=== PATIENT | female | born 2000 | race Asian ===

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

== ENCOUNTER 2022-08-21 18:33 | Emergency (ER) | payer OTHER ==
[~2022-08-21] VITALS: Ht 162.6 cm; Wt 60.9 kg
[2022-08-21] MEDS ORDERED: ARIP400S3 IM (19:11)
[2022-08-21 20:12] LABS: BASOPHILS % (AUTO) 0.8 % (0.0-2.0); EOSINOPHILS % (AUTO) 0.4 % (1.0-6.0); HEMATOCRIT 39.7 % (36-46); HEMOGLOBIN 13.4 g/dL (12.0-16.0); LYMPHOCYTES # (AUTO) 1.8 K/uL (1.0-4.8); LYMPHOCYTES % (AUTO) 17.2 % (22.0-44.0); MEAN CORPUSCULAR HGB CONC 33.8 G/dL (31.0-37.0); MEAN CORPUSCULAR VOLUME 95 fL (80-100); MONOCYTES # (AUTO) 0.7 K/uL (0.1-1.0); MONOCYTES % (AUTO) 6.4 % (2.0-9.0); NEUTROPHILS % (AUTO) 75.2 % (40.0-70.0); PLATELET COUNT (AUTO) 360 K/uL (150-450)
[2022-08-21 20:21] LABS: ANION GAP 6 mmol/L (8-16); CALCIUM, TOTAL 9.8 mg/dL (8.8-10.5); CARBON DIOXIDE 29 mmol/L (22-29); CHLORIDE 101 mmol/L (98-107); CREATININE 0.84 mg/dL (0.60-1.30); GLOMERULAR FILTR. RATE CALC > 60 mL/min (>60); GLUCOSE,RANDOM 102 mg/dL (70-110); POTASSIUM 4.1 mmol/L (3.5-5.1); SODIUM SERUM 136 mmol/L (136-145); UREA NITROGEN, BLOOD 10 mg/dL (7-18)
[2022-08-21 20:33] LABS: ALANINE AMINOTRANSFERASE 12 U/L (12-78); ALBUMIN 3.7 g/dL (3.4-5.0); ALKALINE PHOSPHATASE 79 U/L (46-116); ASPARTATE AMINOTRANSFERASE 12 U/L (15-37); BILIRUBIN,TOTAL 0.3 mg/dL (0.1-1.0); HCG,QUANTITATIVE < 1 mIU/mL (0-6); TOTAL PROTEIN, SERUM 7.4 g/dL (6.4-8.2)
[2022-08-21 21:35] LABS: COVID AG,FIA SOURCE NASAL SWAB
[2022-08-21 21:48] LABS: AMPHET/METH SCREEN,URINE NEGATIVE (NEGATIVE); BARBITURATE SCREEN, URINE NEGATIVE (NEGATIVE); BENZODIAZEPINES SCREEN,URINE NEGATIVE (NEGATIVE); CANNABINOID SCREEN,URINE NEGATIVE (NEGATIVE); COCAINE SCREEN,URINE NEGATIVE (NEGATIVE); METHADONE SCREEN, URINE NEGATIVE (NEGATIVE); OPIATE SCREEN,URINE NEGATIVE (NEGATIVE)
[2022-08-21 21:49] LABS: PHENCYCLIDINE SCREEN,URINE NEGATIVE (NEGATIVE)
[2022-08-21 22:34] VITALS: BP 124/5
== END 2022-08-21 23:00 | disposition home or self-care (01) ==
LOC: EDUNIT# 18:33 → EDBD 18:43 → EMS 18:43
DX: F20.0 Paranoid schizophrenia (principal); Z20.822 Contact with and (suspected) exposure to COVID-19
CPT/HCPCS: 99283; 87426; 80053; 84702; 85025; 36415; 80307; G0480

== ENCOUNTER 2022-10-12 17:24 | Inpatient (IN) | payer MEDICAID, OTHER ==
[~2022-10-12] VITALS: Ht 162.6 cm; Wt 54.0 kg
[~2022-10-12 17:24] MED LIST: ARIP400S3 IM
[2022-10-12] MEDS ORDERED: ACTIVATED CHARCOAL 50 GM/240 ML SUSPENSION PO ONE ×2 (18:15→20:30)
[2022-10-12] MEDS ORDERED: SODIUM CHLORIDE 0.9% 1,000 ML IV ONE ×2 (18:15→19:15)
[2022-10-12 18:20] LABS: BASOPHILS % (AUTO) 0.5 % (0.0-2.0); EOSINOPHILS % (AUTO) 0.5 % (1.0-6.0); HEMATOCRIT 42.5 % (36-46); HEMOGLOBIN 13.9 g/dL (12.0-16.0); LYMPHOCYTES # (AUTO) 2.2 K/uL (1.0-4.8); LYMPHOCYTES % (AUTO) 20.7 % (22.0-44.0); MEAN CORPUSCULAR HEMOGLOBIN 30.9 pg (26.0-34.0); MEAN CORPUSCULAR HGB CONC 32.7 G/dL (31.0-37.0); MEAN CORPUSCULAR VOLUME 95 fL (80-100); MONOCYTES # (AUTO) 0.6 K/uL (0.1-1.0); MONOCYTES % (AUTO) 5.7 % (2.0-9.0); NEUTROPHILS # (AUTO) 7.6 K/uL (1.8-7.7); NEUTROPHILS % (AUTO) 72.6 % (40.0-70.0); PLATELET COUNT (AUTO) 342 K/uL (150-450); RED BLOOD CELL COUNT(AUTO) 4.49 MIL/uL (4.00-5.20); RED CELL DISTRIBUTION WIDTH 12.4 % (11.5-14.5)
[2022-10-12 18:28] LABS: ANION GAP 13 mmol/L (8-16); CALCIUM, TOTAL 9.2 mg/dL (8.8-10.5); CARBON DIOXIDE 25 mmol/L (22-29); CHLORIDE 99 mmol/L (98-107); CREATININE 1.03 mg/dL (0.60-1.30); GLUCOSE,RANDOM 169 mg/dL (70-110); POTASSIUM 3.9 mmol/L (3.5-5.1); SODIUM SERUM 137 mmol/L (136-145); UREA NITROGEN, BLOOD 9 mg/dL (7-18)
[2022-10-12 18:31] LABS: GLOMERULAR FILTR. RATE CALC > 60 mL/min (>60)
[2022-10-12 18:32] LABS: AMPHET/METH SCREEN,URINE NEGATIVE (NEGATIVE); BARBITURATE SCREEN, URINE NEGATIVE (NEGATIVE); BENZODIAZEPINES SCREEN,URINE NEGATIVE (NEGATIVE); CANNABINOID SCREEN,URINE NEGATIVE (NEGATIVE); COCAINE SCREEN,URINE NEGATIVE (NEGATIVE); METHADONE SCREEN, URINE NEGATIVE (NEGATIVE); OPIATE SCREEN,URINE NEGATIVE (NEGATIVE); PHENCYCLIDINE SCREEN,URINE NEGATIVE (NEGATIVE)
[2022-10-12 18:44] LABS: ACETAMINOPHEN < 2 mcg/mL (10-30); ALANINE AMINOTRANSFERASE 10 U/L (12-78); ALBUMIN 3.8 g/dL (3.4-5.0); ALKALINE PHOSPHATASE 88 U/L (46-116); ASPARTATE AMINOTRANSFERASE 15 U/L (15-37); BILIRUBIN,TOTAL 0.4 mg/dL (0.1-1.0); TOTAL PROTEIN, SERUM 8.4 g/dL (6.4-8.2)
[2022-10-12 18:53] LABS: SALICYLATE 26.1 mg/dL (2.8-20.0)
[2022-10-12 20:20] LABS: ANION GAP 10 mmol/L (8-16); CALCIUM, TOTAL 8.6 mg/dL (8.8-10.5); CARBON DIOXIDE 24 mmol/L (22-29); CHLORIDE 105 mmol/L (98-107); CREATININE 1.01 mg/dL (0.60-1.30); GLUCOSE,RANDOM 185 mg/dL (70-110); POTASSIUM 4.2 mmol/L (3.5-5.1); SODIUM SERUM 139 mmol/L (136-145); UREA NITROGEN, BLOOD 8 mg/dL (7-18)
[2022-10-12 20:23] LABS: GLOMERULAR FILTR. RATE CALC > 60 mL/min (>60)
[2022-10-12 20:25] LABS: SALICYLATE 23.3 mg/dL (2.8-20.0)
[2022-10-12 22:39] LABS: COVID AG,FIA SOURCE NASOPHARYNGEAL
[2022-10-12] MEDS ORDERED: ZOLPIDEM TARTRATE 10 MG TABLET PO PRN (23:15)
[2022-10-12] MEDS ORDERED: HALOPERIDOL 5 MG TABLET PO PRN (23:15)
[2022-10-12] MEDS ORDERED: LORazepam 2 MG TABLET PO PRN (23:15)
[2022-10-13 00:47] VITALS: BP 97/62
[2022-10-13 00:54] VITALS: BP 97/62
[2022-10-13 01:10] LABS: APPEARANCE,URINE HAZY (CLEAR); BILIRUBIN,URINE NEGATIVE (NEGATIVE); GLUCOSE, URINE (UA) NEGATIVE (NEGATIVE); LEUKOCYTE ESTERASE ,URINE LARGE (NEGATIVE); NITRATE,URINE NEGATIVE (NEGATIVE); OCCULT BLOOD,URINE NEGATIVE (NEGATIVE); PH,URINE 5.5 (5.0-8.0); PROTEIN,URINE TRACE mg/dL (NEGATIVE); SPECIFIC GRAVITIY, URINE 1.016 (1.003-1.030); UROBILINOGEN,URINE <=1.0 mg/dL (<=1.0)
[2022-10-13 01:21] VITALS: BP 97/62
[2022-10-13 02:07] LABS: AMORPHOUS SEDIMENT,UR Few /LPF (None Seen); BACTERIA,URINE Moderate /HPF (None Seen); RBC,URINE 0-2 /HPF (0-2); SQUAMOUS EPITHELIAL CELL,UR Few /LPF (None Seen)
[2022-10-13] MEDS ORDERED: MAG HYDROX/AL HYDROX/SIMETH ES 30 ML SUSPENSION UDCUP PO PRN (05:30)
[2022-10-13] MEDS ORDERED: LOPERAMIDE HCL 2 MG CAPSULE PO PRN (05:30)
[2022-10-13] MEDS ORDERED: BENZOCAINE/MENTHOL LOZENGE PO PRN (05:30)
[2022-10-13] MEDS ORDERED: PETROLATUM,WHITE 28 GM JELLY TP PRN (05:30)
[2022-10-13] MEDS ORDERED: DOCUSATE SODIUM 100 MG CAPSULE PO PRN (05:30)
[2022-10-13] MEDS ORDERED: ONDANSETRON HCL 4 MG TABLET PO PRN (05:30)
[2022-10-13] MEDS ORDERED: BACITRACIN 28 GM OINTMENT TP PRN (05:30)
[2022-10-13] MEDS ORDERED: OMEPRAZOLE 20 MG CAPSULE PO PRN (05:30)
[2022-10-13] MEDS ORDERED: MAGNESIUM HYDROXIDE SUSPENSION 30 ML UDCUP PO PRN (05:30)
[2022-10-13] MEDS ORDERED: ACETAMINOPHEN 325 MG TABLET PO PRN (05:30)
[2022-10-13] MEDS ORDERED: ALBUTEROL SULFATE HFA 90 MCG/PUFF 8 GM INHALER IH PRN (05:30)
[2022-10-13] MEDS ORDERED: CloNIDine HCL 0.1 MG TABLET PO PRN (05:30)
[2022-10-13] MEDS ORDERED: IBUPROFEN 600 MG TABLET PO PRN (05:30)
[2022-10-13 11:28] VITALS: BP 133/70
[2022-10-13] MEDS: CEPHALEXIN MONOHYDRATE 500 MG CAPSULE PO SCH ×2 (12:24→16:28)
[2022-10-13 16:41] VITALS: BP 125/74
[2022-10-13] MEDS: ARIPiprazole 15 MG TABLET PO SCH (18:55)
[2022-10-14 07:42] LABS: HEMOGLOBIN A1C 5.5 % (3.8-5.6)
[2022-10-14 07:46] LABS: CHOL/HDL RATIO 2.7 (3.9-5.7)
[2022-10-14 08:00] VITALS: BP 111/61
[2022-10-14 08:06] LABS: THYROID STIMULATING HORMONE 0.99 uIU/mL (0.36-3.74)
[2022-10-14] MEDS: CEPHALEXIN MONOHYDRATE 500 MG CAPSULE PO SCH ×2 (09:17→16:20)
[2022-10-14] MEDS: ARIPiprazole 15 MG TABLET PO SCH (09:17)
[2022-10-14 16:00] VITALS: BP 130/87
[2022-10-15] MEDS: CEPHALEXIN MONOHYDRATE 500 MG CAPSULE PO SCH ×2 (08:04→16:25)
[2022-10-15] MEDS: ARIPiprazole 15 MG TABLET PO SCH (08:07)
[2022-10-15 08:11] VITALS: BP 123/75
[2022-10-15 16:37] VITALS: BP 100/63
[2022-10-15 20:47] VITALS: BP 124/81
[2022-10-16 03:06] LABS: HEPATITIS C AB (EIA) <0.1 s/co ratio (0.0-0.9)
[2022-10-16] MEDS: CEPHALEXIN MONOHYDRATE 500 MG CAPSULE PO SCH ×2 (08:19→16:16)
[2022-10-16] MEDS: ARIPiprazole 15 MG TABLET PO SCH (08:19)
[2022-10-16 08:36] VITALS: BP 113/70
[2022-10-16 17:40] VITALS: BP 107/70
[2022-10-17] MEDS: ARIPiprazole 10 MG TABLET PO SCH (08:20)
[2022-10-17] MEDS: CEPHALEXIN MONOHYDRATE 500 MG CAPSULE PO SCH ×2 (08:20→16:43)
[2022-10-17 09:36] VITALS: BP 125/60
[2022-10-17 16:52] VITALS: BP 111/62
[2022-10-18] MEDS: CEPHALEXIN MONOHYDRATE 500 MG CAPSULE PO SCH ×2 (08:34→16:24)
[2022-10-18] MEDS: ARIPiprazole 10 MG TABLET PO SCH (08:34)
[2022-10-18 09:00] VITALS: BP 112/72
[2022-10-18 16:00] VITALS: BP 107/67
[2022-10-19 07:02] LABS: COVID AG,FIA SOURCE NASAL SWAB
[2022-10-19 08:17] VITALS: BP 113/62
[2022-10-19] MEDS: ARIPiprazole 10 MG TABLET PO SCH (10:34)
[2022-10-19] MEDS: CEPHALEXIN MONOHYDRATE 500 MG CAPSULE PO SCH ×2 (10:34→17:30)
[2022-10-19 16:19] VITALS: BP 116/70
[2022-10-20] MEDS: ARIPiprazole 10 MG TABLET PO SCH (09:01)
[2022-10-20 09:13] VITALS: BP 114/74
[2022-10-20 16:10] VITALS: BP 109/72
[2022-10-21 08:35] VITALS: BP 106/60
[2022-10-21] MEDS: ARIPiprazole 10 MG TABLET PO SCH (09:37)
[2022-10-21 16:16] VITALS: BP 118/78
[2022-10-22 10:35] VITALS: BP 152/83
[2022-10-22] MEDS: ARIPiprazole 10 MG TABLET PO SCH (11:24)
[2022-10-22 16:16] VITALS: BP 107/73
[2022-10-23] MEDS: ARIPiprazole 10 MG TABLET PO SCH (08:33)
[2022-10-23 09:35] VITALS: BP 110/67
[2022-10-23 16:16] VITALS: BP 108/78
[2022-10-24] MEDS: ARIPiprazole 10 MG TABLET PO SCH (08:18)
[2022-10-24 08:35] VITALS: BP 118/70
[2022-10-24 09:33] VITALS: BP 118/70
[2022-10-24] MEDS ORDERED: ARIP10TA38 PO (10:23)
== END 2022-10-24 14:55 | disposition home or self-care (01) | DRG 750 ==
LOC: EMS 17:27 → 3EI 23:23
PROVIDERS: ADMIT Psychiatry & Neurology Psychiatry; ATTEND Psychiatry & Neurology Psychiatry
DX: F25.9 Schizoaffective disorder, unspecified (principal); F32.A Depression, unspecified; G47.00 Insomnia, unspecified; K59.00 Constipation, unspecified; N39.0 Urinary tract infection, site not specified; T39.012A Poisoning by aspirin, intentional self-harm, initial encounter; Z20.822 Contact with and (suspected) exposure to COVID-19; F41.9 Anxiety disorder, unspecified; R73.9 Hyperglycemia, unspecified; Z56.0 Unemployment, unspecified; Y92.89 Other specified places as the place of occurrence of the external cause; Z79.899 Other long term (current) drug therapy
CPT/HCPCS: 80048; 80053; 80061; 80307; 81001; 83036; 84443; 84703; 85025; 86803; 87086; 87186; 87340; 99285; G0480; G0481; J7030

== ENCOUNTER 2023-01-12 22:28 | Inpatient (IN) | payer MEDICAID ==
[~2023-01-12] VITALS: Ht 165.1 cm; Wt 58.1 kg
[~2023-01-12 22:28] MED LIST changes: +ARIP10TA38 PO; -ARIP400S3 IM
[2023-01-12 23:19] LABS: AMPHET/METH SCREEN,URINE NEGATIVE (NEGATIVE); BARBITURATE SCREEN, URINE NEGATIVE (NEGATIVE); BENZODIAZEPINES SCREEN,URINE NEGATIVE (NEGATIVE); CANNABINOID SCREEN,URINE NEGATIVE (NEGATIVE); COCAINE SCREEN,URINE NEGATIVE (NEGATIVE); METHADONE SCREEN, URINE NEGATIVE (NEGATIVE); OPIATE SCREEN,URINE NEGATIVE (NEGATIVE); PHENCYCLIDINE SCREEN,URINE NEGATIVE (NEGATIVE)
[2023-01-12 23:21] LABS: BASOPHILS % (AUTO) 0.3 % (0.0-2.0); EOSINOPHILS % (AUTO) 0.9 % (1.0-6.0); HEMATOCRIT 36.8 % (36-46); HEMOGLOBIN 12.3 g/dL (12.0-16.0); LYMPHOCYTES # (AUTO) 2.5 K/uL (1.0-4.8); MEAN CORPUSCULAR HEMOGLOBIN 31.5 pg (26.0-34.0); MEAN CORPUSCULAR HGB CONC 33.4 G/dL (31.0-37.0); MEAN CORPUSCULAR VOLUME 94 fL (80-100); MONOCYTES % (AUTO) 9.5 % (2.0-9.0); NEUTROPHILS # (AUTO) 6.5 K/uL (1.8-7.7); NEUTROPHILS % (AUTO) 64.3 % (40.0-70.0); PLATELET COUNT (AUTO) 333 K/uL (150-450); RED CELL DISTRIBUTION WIDTH 13.2 % (11.5-14.5)
[2023-01-12 23:33] LABS: ANION GAP 8 mmol/L (8-16); CARBON DIOXIDE 25 mmol/L (22-29); CHLORIDE 104 mmol/L (98-107); CREATININE 0.75 mg/dL (0.60-1.30); GLOMERULAR FILTR. RATE CALC > 60 mL/min (>60); GLUCOSE,RANDOM 109 mg/dL (70-110); POTASSIUM 3.4 mmol/L (3.5-5.1); SODIUM SERUM 137 mmol/L (136-145); UREA NITROGEN, BLOOD 10 mg/dL (7-18)
[2023-01-12 23:36] LABS: ALANINE AMINOTRANSFERASE 15 U/L (12-78); ALBUMIN 3.2 g/dL (3.4-5.0); ALKALINE PHOSPHATASE 54 U/L (46-116); ASPARTATE AMINOTRANSFERASE 14 U/L (15-37); BILIRUBIN,TOTAL 0.2 mg/dL (0.1-1.0); TOTAL PROTEIN, SERUM 6.6 g/dL (6.4-8.2)
[2023-01-12 23:38] LABS: ACETAMINOPHEN < 2 mcg/mL (10-30)
[2023-01-12 23:42] LABS: SALICYLATE < 0.2 mg/dL (2.8-20.0)
[2023-01-12 23:51] LABS: COVID AG,FIA SOURCE NASAL SWAB
[2023-01-13] MEDS ORDERED: HALOPERIDOL 5 MG TABLET PO PRN (01:15)
[2023-01-13] MEDS ORDERED: ZOLPIDEM TARTRATE 10 MG TABLET PO PRN (01:15)
[2023-01-13] MEDS ORDERED: LORazepam 2 MG TABLET PO PRN (01:15)
[2023-01-13 03:35] VITALS: BP 119/75
[2023-01-13] MEDS ORDERED: CloNIDine HCL 0.1 MG TABLET PO PRN (08:00)
[2023-01-13] MEDS ORDERED: MAGNESIUM HYDROXIDE SUSPENSION 30 ML UDCUP PO PRN (08:00)
[2023-01-13] MEDS ORDERED: ONDANSETRON HCL 4 MG TABLET PO PRN (08:00)
[2023-01-13] MEDS ORDERED: PETROLATUM,WHITE 28 GM JELLY TP PRN (08:00)
[2023-01-13] MEDS ORDERED: DOCUSATE SODIUM 100 MG CAPSULE PO PRN (08:00)
[2023-01-13] MEDS ORDERED: GuaiFENesin/D-METHORPHAN [SUGAR-FREE] 200-20MG/10 ML SYRUP UDCUP PO PRN (08:00)
[2023-01-13] MEDS ORDERED: LOPERAMIDE HCL 2 MG CAPSULE PO PRN (08:00)
[2023-01-13] MEDS ORDERED: MAG HYDROX/AL HYDROX/SIMETH ES 30 ML SUSPENSION UDCUP PO PRN (08:00)
[2023-01-13] MEDS ORDERED: ALBUTEROL SULFATE HFA 90 MCG/PUFF 8 GM INHALER IH PRN (08:00)
[2023-01-13] MEDS ORDERED: ACETAMINOPHEN 325 MG TABLET PO PRN (08:00)
[2023-01-13] MEDS ORDERED: NICOTINE 14 MG/24 HOUR PATCH TD PRN (08:00)
[2023-01-13] MEDS ORDERED: IBUPROFEN 400 MG TABLET PO PRN (08:00)
[2023-01-13 08:16] VITALS: BP 124/69
[2023-01-13] MEDS ORDERED: ARIPiprazole 15 MG TABLET PO ONE (09:30)
[2023-01-13] MEDS ORDERED: ARIPiprazole LAUROXIL,SUBMICR. ER SUSPENSION 675 MG/2.4 ML SYRINGE IM ONE (09:30)
[2023-01-13] MEDS ORDERED: ARIPiprazole LAUROXIL ER SUSPENSION 882 MG/3.2 ML SYRINGE IM ONE (09:30)
[2023-01-13 22:06] VITALS: BP 110/60
[2023-01-14] MEDS ORDERED: LEVO1TAB89 PO (07:29)
[2023-01-14] MEDS ORDERED: ARIP10TA38 PO (07:29)
[2023-01-14 08:41] VITALS: BP 129/75
[2023-01-14 23:41] VITALS: BP 100/65
[2023-01-15 08:24] VITALS: BP 110/64
[2023-01-15 20:33] VITALS: BP 111/65
[2023-01-16 08:11] LABS: APPEARANCE,URINE HAZY (CLEAR); BILIRUBIN,URINE NEGATIVE (NEGATIVE); GLUCOSE, URINE (UA) NEGATIVE (NEGATIVE); KETONES,URINE NEGATIVE (NEGATIVE); LEUKOCYTE ESTERASE ,URINE LARGE (NEGATIVE); NITRATE,URINE POSITIVE (NEGATIVE); OCCULT BLOOD,URINE NEGATIVE (NEGATIVE); PH,URINE 7.5 (5.0-8.0); PROTEIN,URINE TRACE mg/dL (NEGATIVE); SPECIFIC GRAVITIY, URINE 1.016 (1.003-1.030); UROBILINOGEN,URINE <=1.0 mg/dL (<=1.0)
[2023-01-16 08:17] LABS: AMPHET/METH SCREEN,URINE NEGATIVE (NEGATIVE); BARBITURATE SCREEN, URINE NEGATIVE (NEGATIVE); BENZODIAZEPINES SCREEN,URINE NEGATIVE (NEGATIVE); CANNABINOID SCREEN,URINE NEGATIVE (NEGATIVE); COCAINE SCREEN,URINE NEGATIVE (NEGATIVE); METHADONE SCREEN, URINE NEGATIVE (NEGATIVE); OPIATE SCREEN,URINE NEGATIVE (NEGATIVE); PHENCYCLIDINE SCREEN,URINE NEGATIVE (NEGATIVE)
[2023-01-16 08:18] VITALS: BP 117/63
[2023-01-16 08:21] LABS: RBC,URINE 0-2 /HPF (0-2); WBC,URINE 26-50 /HPF (0-5)
[2023-01-16 08:22] LABS: BACTERIA,URINE Moderate /HPF (None Seen); SQUAMOUS EPITHELIAL CELL,UR Moderate /LPF (None Seen)
[2023-01-16] MEDS: CEPHALEXIN MONOHYDRATE 500 MG CAPSULE PO SCH ×2 (09:33→12:52)
[2023-01-16] MEDS ORDERED: ARIP882S2 IM (10:51)
[2023-01-16] MEDS ORDERED: CEPH-558 PO (12:37)
[2023-02-12] MEDS ORDERED: ARIPiprazole LAUROXIL ER SUSPENSION 882 MG/3.2 ML SYRINGE IM SCH (09:00)
== END 2023-01-16 15:00 | disposition home or self-care (01) | DRG 750 ==
LOC: EMS 22:29 → B3A 01-13 02:00
PROVIDERS: ADMIT Psychiatry & Neurology Psychiatry; ATTEND Psychiatry & Neurology Psychiatry
DX: F20.0 Paranoid schizophrenia (principal); G93.40 Encephalopathy, unspecified; R45.851 Suicidal ideations; E87.6 Hypokalemia; Z91.51 Personal history of suicidal behavior; Z20.822 Contact with and (suspected) exposure to COVID-19
CPT/HCPCS: 80053; 80307; 81001; 85025; 87086; 87186; 99285; G0480; G0481; Q9967

== ENCOUNTER 2023-05-18 15:17 | Inpatient (IN) | payer MEDICAID ==
[~2023-05-18] VITALS: Ht 165.1 cm; Wt 54.1 kg
[2023-05-18] MEDS ORDERED: DiphenhydrAMINE HCL 25 MG CAPSULE PO PRN (17:00)
[2023-05-18] MEDS ORDERED: HALOPERIDOL 5 MG TABLET PO PRN (17:00)
[2023-05-18] MEDS ORDERED: HALOPERIDOL LACTATE 5 MG/ML VIAL IM ONE (17:00)
[2023-05-18] MEDS ORDERED: DiphenhydrAMINE HCL 50 MG/ML VIAL IM ONE (17:00)
[2023-05-18 17:41] LABS: BASOPHILS % (AUTO) 0.2 % (0.0-2.0); EOSINOPHILS % (AUTO) 0.2 % (1.0-6.0); HEMATOCRIT 34.2 % (36-46); HEMOGLOBIN 11.2 g/dL (12.0-16.0); MEAN CORPUSCULAR HEMOGLOBIN 31.6 pg (26.0-34.0); MEAN CORPUSCULAR HGB CONC 32.9 G/dL (31.0-37.0); MEAN CORPUSCULAR VOLUME 96 fL (80-100); MONOCYTES # (AUTO) 0.7 K/uL (0.1-1.0); MONOCYTES % (AUTO) 6.7 % (2.0-9.0); NEUTROPHILS # (AUTO) 7.8 K/uL (1.8-7.7); NEUTROPHILS % (AUTO) 73.9 % (40.0-70.0); PLATELET COUNT (AUTO) 272 K/uL (150-450); RED BLOOD CELL COUNT(AUTO) 3.56 MIL/uL (4.00-5.20); RED CELL DISTRIBUTION WIDTH 12.9 % (11.5-14.5)
[2023-05-18 17:53] LABS: ANION GAP 8 mmol/L (8-16); CALCIUM, TOTAL 8.8 mg/dL (8.8-10.5); CARBON DIOXIDE 24 mmol/L (22-29); CHLORIDE 104 mmol/L (98-107); CREATININE 0.67 mg/dL (0.60-1.30); GLOMERULAR FILTR. RATE CALC > 60 mL/min (>60); GLUCOSE,RANDOM 72 mg/dL (70-110); POTASSIUM 3.7 mmol/L (3.5-5.1); SODIUM SERUM 136 mmol/L (136-145)
[2023-05-18 17:59] LABS: ALANINE AMINOTRANSFERASE 9 U/L (12-78); ALBUMIN 2.7 g/dL (3.4-5.0); ALKALINE PHOSPHATASE 48 U/L (46-116); ASPARTATE AMINOTRANSFERASE 16 U/L (15-37); BILIRUBIN,TOTAL 0.3 mg/dL (0.1-1.0)
[2023-05-19 16:57] LABS: COVID AG,FIA SOURCE NASAL SWAB
[2023-05-20] MEDS: DiphenhydrAMINE HCL 50 MG/ML VIAL IM ONE ×2 (04:00→05:54)
[2023-05-20 09:10] VITALS: BP 111/63; PULSE 98; RESP 18; TEMP 99.1
[2023-05-20] MEDS: PRENATAL NO.137/IRON/FOLIC ACID TABLET PO SCH (16:27)
[2023-05-20] MEDS ORDERED: PETROLATUM,WHITE 28 GM JELLY TP PRN (18:00)
[2023-05-20] MEDS ORDERED: MAGNESIUM HYDROXIDE SUSPENSION 30 ML UDCUP PO PRN (18:00)
[2023-05-20] MEDS ORDERED: DOCUSATE SODIUM 100 MG CAPSULE PO PRN (18:00)
[2023-05-20] MEDS ORDERED: BENZOCAINE/MENTHOL LOZENGE PO PRN (18:00)
[2023-05-20] MEDS ORDERED: ONDANSETRON HCL 4 MG TABLET PO PRN (18:00)
[2023-05-20] MEDS ORDERED: IBUPROFEN 600 MG TABLET PO PRN (18:00)
[2023-05-20] MEDS ORDERED: ALBUTEROL SULFATE HFA 90 MCG/PUFF 8 GM INHALER IH PRN (18:00)
[2023-05-20] MEDS ORDERED: OMEPRAZOLE 20 MG CAPSULE PO PRN (18:00)
[2023-05-20] MEDS ORDERED: LOPERAMIDE HCL 2 MG CAPSULE PO PRN (18:00)
[2023-05-20] MEDS ORDERED: ACETAMINOPHEN 325 MG TABLET PO PRN (18:00)
[2023-05-20] MEDS ORDERED: CloNIDine HCL 0.1 MG TABLET PO PRN (18:00)
[2023-05-20] MEDS ORDERED: BACITRACIN 28 GM OINTMENT TP PRN (18:00)
[2023-05-20] MEDS ORDERED: MAG HYDROX/AL HYDROX/SIMETH ES 30 ML SUSPENSION UDCUP PO PRN (18:00)
[2023-05-20 20:36] VITALS: BP 101/62; PULSE 72; RESP 19; TEMP 98.5
[2023-05-21 00:06] VITALS: RESP 18
[2023-05-21 04:02] VITALS: RESP 18
[2023-05-21 08:00] VITALS: BP 103/85; PULSE 85; RESP 18; TEMP 99.1
[2023-05-21] MEDS: PRENATAL NO.137/IRON/FOLIC ACID TABLET PO SCH (11:18)
[2023-05-21] MEDS: HALOPERIDOL 5 MG TABLET PO SCH (20:59)
[2023-05-21 22:35] VITALS: BP 104/66; PULSE 93; RESP 18; TEMP 98
[2023-05-22 08:19] VITALS: BP 99/69; PULSE 76; RESP 17; TEMP 98.1
[2023-05-22] MEDS: PRENATAL NO.137/IRON/FOLIC ACID TABLET PO SCH (08:38)
[2023-05-22] MEDS: HALOPERIDOL 5 MG TABLET PO SCH (21:12)
[2023-05-22 21:59] VITALS: BP 105/75; PULSE 91; RESP 18; TEMP 97.1
[2023-05-23] MEDS: PRENATAL NO.137/IRON/FOLIC ACID TABLET PO SCH (09:07)
[2023-05-23 09:50] VITALS: BP 114/53; PULSE 88; RESP 18; TEMP 97.8
[2023-05-23] MEDS: HALOPERIDOL 5 MG TABLET PO SCH (21:01)
[2023-05-23 21:06] VITALS: BP 105/60; PULSE 89; RESP 16; TEMP 98.2
[2023-05-24 08:00] VITALS: BP 92/53; PULSE 81; RESP 18; TEMP 97.2
[2023-05-24] MEDS: PRENATAL NO.137/IRON/FOLIC ACID TABLET PO SCH (08:57)
[2023-05-24] MEDS ORDERED: PNV1TABL57 PO (14:45)
[2023-05-24] MEDS ORDERED: HALO5TAB23 PO (14:45)
[2023-05-24] MEDS ORDERED: HALOPERIDOL 10 MG TABLET PO SCH (21:00)
[2023-05-24] MEDS ORDERED: HALOPERIDOL 5 MG TABLET PO SCH (21:00)
== END 2023-05-24 17:30 | disposition home or self-care (01) | DRG 566 ==
LOC: EMS 15:19 → 3EX 05-20 03:55 → 3EI 05-20 10:15
PROVIDERS: ADMIT Psychiatry & Neurology Psychiatry; ATTEND Psychiatry & Neurology Psychiatry
DX: O99.342 Other mental disorders complicating pregnancy, second trimester (principal); F25.1 Schizoaffective disorder, depressive type; R45.851 Suicidal ideations; G47.00 Insomnia, unspecified; Z20.822 Contact with and (suspected) exposure to COVID-19; K59.00 Constipation, unspecified; F41.9 Anxiety disorder, unspecified; Z3A.14 14 weeks gestation of pregnancy; Z56.0 Unemployment, unspecified
CPT/HCPCS: 80053; 85025; 87081; 99291; G0480; J1200; J1630

== ENCOUNTER 2023-06-03 23:23 | Emergency (ER) | payer MEDICAID ==
[~2023-06-03] VITALS: Ht 165.1 cm; Wt 54.5 kg
[~2023-06-03 23:23] MED LIST changes: -ARIP10TA38 PO; +HALO5TAB23 PO; +PNV1TABL57 PO
[2023-06-04 00:36] VITALS: TEMP 97.8
[2023-06-04 01:07] LABS: BASOPHILS % (AUTO) 0.3 % (0.0-2.0); EOSINOPHILS % (AUTO) 0.7 % (1.0-6.0); LYMPHOCYTES # (AUTO) 1.4 K/uL (1.0-4.8); MEAN CORPUSCULAR HEMOGLOBIN 32.1 pg (26.0-34.0); MEAN CORPUSCULAR HGB CONC 33.4 G/dL (31.0-37.0); MEAN CORPUSCULAR VOLUME 96 fL (80-100); MONOCYTES # (AUTO) 0.6 K/uL (0.1-1.0); MONOCYTES % (AUTO) 6.6 % (2.0-9.0); NEUTROPHILS # (AUTO) 7.2 K/uL (1.8-7.7); NEUTROPHILS % (AUTO) 77.4 % (40.0-70.0); PLATELET COUNT (AUTO) 261 K/uL (150-450); RED BLOOD CELL COUNT(AUTO) 3.12 MIL/uL (4.00-5.20); RED CELL DISTRIBUTION WIDTH 12.7 % (11.5-14.5); WHITE BLOOD COUNT (AUTO) 9.3 K/uL (4.5-11.0)
[2023-06-04 01:16] LABS: ANION GAP 9 mmol/L (8-16); CALCIUM, TOTAL 8.6 mg/dL (8.8-10.5); CARBON DIOXIDE 26 mmol/L (22-29); CHLORIDE 101 mmol/L (98-107); CREATININE 0.67 mg/dL (0.60-1.30); GLOMERULAR FILTR. RATE CALC > 60 mL/min (>60); GLUCOSE,RANDOM 104 mg/dL (70-110); POTASSIUM 3.1 mmol/L (3.5-5.1); SODIUM SERUM 136 mmol/L (136-145); UREA NITROGEN, BLOOD 5 mg/dL (7-18)
[2023-06-04 01:21] LABS: ALBUMIN 2.3 g/dL (3.4-5.0); ALKALINE PHOSPHATASE 56 U/L (46-116); ASPARTATE AMINOTRANSFERASE 12 U/L (15-37); BILIRUBIN,TOTAL 0.4 mg/dL (0.1-1.0); TOTAL PROTEIN, SERUM 5.8 g/dL (6.4-8.2)
[2023-06-04 01:32] LABS: ALCOHOL, BLOOD (SERUM) < 3 mg/dL (0-10)
[2023-06-04 01:43] LABS: ALANINE AMINOTRANSFERASE 6 U/L (12-78)
[2023-06-04] MEDS ORDERED: POTASSIUM CHLORIDE 20 MEQ ER TABLET PO ONE (01:45)
[2023-06-04 02:03] LABS: COVID AG,FIA SOURCE NASOPHARYNGEAL
[2023-06-04 02:10] VITALS: BP 114/63; PULSE 70; RESP 15
[2023-06-04 02:21] LABS: SARS-COV2 (COVID) ANTIGEN,FIA Negative (Negative)
== END 2023-06-04 06:03 | disposition home or self-care (01) ==
LOC: EMS 23:25
DX: R45.851 Suicidal ideations (principal); O26.892 Other specified pregnancy related conditions, second trimester; F32.A Depression, unspecified; F20.9 Schizophrenia, unspecified; Z20.822 Contact with and (suspected) exposure to COVID-19; Z3A.19 19 weeks gestation of pregnancy
CPT/HCPCS: 99283; 87426; 80053; 84703; 85025; 36415; G0480

== ENCOUNTER 2023-06-04 23:51 | Inpatient (IN) | payer MEDICAID ==
[~2023-06-04] VITALS: Ht 165.1 cm; Wt 53.1 kg
[2023-06-05] MEDS ORDERED: ZOLPIDEM TARTRATE 10 MG TABLET PO PRN (01:15)
[2023-06-05 02:08] VITALS: BP 108/64; PULSE 84; RESP 16; TEMP 98.7; O2SAT 98
[2023-06-05 08:52] VITALS: BP 101/64; PULSE 71; RESP 17; TEMP 97.6; O2SAT 99
[2023-06-05] MEDS ORDERED: PRENATAL NO.137/IRON/FOLIC ACID TABLET PO ONE (15:00)
[2023-06-05] MEDS: PRENATAL NO.137/IRON/FOLIC ACID TABLET PO SCH (17:21)
[2023-06-05 20:01] VITALS: BP 100/60; PULSE 72; RESP 18; TEMP 97.8; O2SAT 98
[2023-06-05] MEDS ORDERED: ONDANSETRON HCL 4 MG TABLET PO PRN (21:30)
[2023-06-05] MEDS ORDERED: ALBUTEROL SULFATE HFA 90 MCG/PUFF 8 GM INHALER IH PRN (21:30)
[2023-06-05] MEDS ORDERED: IBUPROFEN 600 MG TABLET PO PRN (21:30)
[2023-06-05] MEDS ORDERED: PETROLATUM,WHITE 28 GM JELLY TP PRN (21:30)
[2023-06-05] MEDS ORDERED: MAGNESIUM HYDROXIDE SUSPENSION 30 ML UDCUP PO PRN (21:30)
[2023-06-05] MEDS ORDERED: BENZOCAINE/MENTHOL LOZENGE PO PRN (21:30)
[2023-06-05] MEDS ORDERED: ACETAMINOPHEN 325 MG TABLET PO PRN (21:30)
[2023-06-05] MEDS ORDERED: OMEPRAZOLE 20 MG CAPSULE PO PRN (21:30)
[2023-06-05] MEDS ORDERED: BACITRACIN 28 GM OINTMENT TP PRN (21:30)
[2023-06-05] MEDS ORDERED: LOPERAMIDE HCL 2 MG CAPSULE PO PRN (21:30)
[2023-06-05] MEDS ORDERED: CloNIDine HCL 0.1 MG TABLET PO PRN (21:30)
[2023-06-05] MEDS ORDERED: DOCUSATE SODIUM 100 MG CAPSULE PO PRN (21:30)
[2023-06-05] MEDS ORDERED: MAG HYDROX/AL HYDROX/SIMETH ES 30 ML SUSPENSION UDCUP PO PRN (21:30)
[2023-06-05] MEDS: HALOPERIDOL 5 MG TABLET PO PRN (23:07)
[2023-06-06 08:31] VITALS: BP 108/69; PULSE 73; RESP 16; TEMP 98.1; O2SAT 98
[2023-06-06 08:46] LABS: BASOPHILS % (AUTO) 0.4 % (0.0-2.0); HEMOGLOBIN 9.7 g/dL (12.0-16.0); LYMPHOCYTES % (AUTO) 27.2 % (22.0-44.0); MEAN CORPUSCULAR HEMOGLOBIN 32.9 pg (26.0-34.0); MEAN CORPUSCULAR HGB CONC 34.5 G/dL (31.0-37.0); MEAN CORPUSCULAR VOLUME 95 fL (80-100); MONOCYTES # (AUTO) 0.6 K/uL (0.1-1.0); MONOCYTES % (AUTO) 8.6 % (2.0-9.0); NEUTROPHILS # (AUTO) 4.6 K/uL (1.8-7.7); NEUTROPHILS % (AUTO) 62.8 % (40.0-70.0); PLATELET COUNT (AUTO) 294 K/uL (150-450); RED BLOOD CELL COUNT(AUTO) 2.94 MIL/uL (4.00-5.20); RED CELL DISTRIBUTION WIDTH 12.4 % (11.5-14.5); WHITE BLOOD COUNT (AUTO) 7.3 K/uL (4.5-11.0)
[2023-06-06 08:54] LABS: HEMOGLOBIN A1C 5.3 % (3.8-5.6)
[2023-06-06] MEDS: PRENATAL NO.137/IRON/FOLIC ACID TABLET PO SCH (09:05)
[2023-06-06 09:16] LABS: ALKALINE PHOSPHATASE 53 U/L (46-116); ANION GAP 8 mmol/L (8-16); ASPARTATE AMINOTRANSFERASE 12 U/L (15-37); BILIRUBIN,TOTAL 0.2 mg/dL (0.1-1.0); CALCIUM, TOTAL 8.6 mg/dL (8.8-10.5); CARBON DIOXIDE 25 mmol/L (22-29); CHLORIDE 104 mmol/L (98-107); CHOL/HDL RATIO 2.6 (3.9-5.7); CHOLESTEROL 195 mg/dL (131-200); CREATININE 0.51 mg/dL (0.60-1.30); FREE T4 (FREE THYROXINE) 1.07 ng/dL (0.76-1.46); GLOMERULAR FILTR. RATE CALC > 60 mL/min (>60); GLUCOSE,RANDOM 65 mg/dL (70-110); HDL CHOLESTEROL 75 mg/dL (40-60); LDL CHOL (CALC.) 104 mg/dL (0-130); POTASSIUM 3.7 mmol/L (3.5-5.1); SODIUM SERUM 137 mmol/L (136-145); THYROID STIMULATING HORMONE 1.26 uIU/mL (0.36-3.74); TOTAL PROTEIN, SERUM 5.4 g/dL (6.4-8.2); TRIGLYCERIDES 81 mg/dL (15-150); UREA NITROGEN, BLOOD 7 mg/dL (7-18)
[2023-06-06 09:17] LABS: ALANINE AMINOTRANSFERASE < 6 U/L (12-78)
[2023-06-06] MEDS: HALOPERIDOL 5 MG TABLET PO PRN (19:45)
[2023-06-06] MEDS: LORazepam 2 MG TABLET PO PRN (19:45)
[2023-06-06 20:44] VITALS: BP 100/64; PULSE 94; RESP 18; TEMP 97.2; O2SAT 99
[2023-06-07 08:07] LABS: HEPATITIS C AB (EIA) Non Reactive (Non Reactive)
[2023-06-07 08:52] VITALS: BP 109/66; PULSE 96; RESP 18; TEMP 98.2; O2SAT 99
[2023-06-07] MEDS: PRENATAL NO.137/IRON/FOLIC ACID TABLET PO SCH (09:47)
[2023-06-07 21:02] VITALS: BP 114/60; PULSE 71; RESP 19; TEMP 97.4; O2SAT 99
[2023-06-07] MEDS: LORazepam 2 MG TABLET PO PRN (22:40)
[2023-06-08 09:10] VITALS: BP 107/61; PULSE 82; RESP 20; TEMP 98; O2SAT 100
[2023-06-08] MEDS: PRENATAL NO.137/IRON/FOLIC ACID TABLET PO SCH (09:10)
== END 2023-06-08 14:51 | disposition home or self-care (01) | DRG 566 ==
LOC: B2S 06-05 01:43
PROVIDERS: ADMIT Psychiatry & Neurology Psychiatry; ATTEND Psychiatry & Neurology Psychiatry
DX: O99.342 Other mental disorders complicating pregnancy, second trimester (principal); R45.851 Suicidal ideations; F25.9 Schizoaffective disorder, unspecified; F41.9 Anxiety disorder, unspecified; O99.612 Diseases of the digestive system complicating pregnancy, second trimester; Z3A.14 14 weeks gestation of pregnancy; K59.00 Constipation, unspecified; G47.00 Insomnia, unspecified; F31.9 Bipolar disorder, unspecified
CPT/HCPCS: 80053; 80061; 83036; 84439; 84443; 85025; 86803; 87081; 87340; Q0162

== ENCOUNTER 2023-06-24 11:02 | Emergency (ER) | payer MEDICAID ==
[~2023-06-24 11:02] MED LIST changes: -HALO5TAB23 PO
[2023-06-24] MEDS ORDERED: PREN1TAB26 PO (16:42)
== END 2023-06-24 11:12 | disposition left against medical advice (07) ==
LOC: EMS 11:02
DX: Z53.21 Procedure and treatment not carried out due to patient leaving prior to being seen by health care provider (principal)

== ENCOUNTER 2024-05-03 08:27 | Emergency (ER) | payer MEDICAID ==
[~2024-05-03] VITALS: Ht 157.5 cm; Wt 55.0 kg
[~2024-05-03 08:27] MED LIST changes: -PNV1TABL57 PO; +PREN1TAB26 PO
[2024-05-03] MEDS ORDERED: ARIP10642 IM (08:33)
[2024-05-03] MEDS ORDERED: DOXY-354 PO (08:33)
[2024-05-03 10:00] VITALS: BP 118/64; PULSE 50; RESP 18; TEMP 98.1
== END 2024-05-03 10:01 | disposition home or self-care (01) ==
LOC: EMS 08:27
DX: T71.9XXA Asphyxiation due to unspecified cause, initial encounter (principal); F32.A Depression, unspecified; F20.9 Schizophrenia, unspecified
CPT/HCPCS: 99281; Z7502

== ENCOUNTER 2024-11-10 16:19 | Emergency (ER) | payer MEDICAID ==
[~2024-11-10] VITALS: Ht 165.1 cm; Wt 70.0 kg
[~2024-11-10 16:19] MED LIST changes: +ARIP10642 IM; +DOXY-354 PO; -PREN1TAB26 PO
[2024-11-10 16:35] VITALS: TEMP 97.5
[2024-11-10 16:57] LABS: APPEARANCE,URINE CLEAR (CLEAR); BILIRUBIN,URINE NEGATIVE (NEGATIVE); COLOR,URINE COLORLESS (YELLOW); GLUCOSE, URINE (UA) NEGATIVE (NEGATIVE); KETONES,URINE NEGATIVE (NEGATIVE); LEUKOCYTE ESTERASE ,URINE NEGATIVE (NEGATIVE); NITRATE,URINE NEGATIVE (NEGATIVE); OCCULT BLOOD,URINE NEGATIVE (NEGATIVE); PH,URINE 5.5 (5.0-8.0); PROTEIN,URINE NEGATIVE (NEGATIVE); SPECIFIC GRAVITIY, URINE 1.017 (1.003-1.030); UROBILINOGEN,URINE <=1.0 mg/dL (<=1.0)
[2024-11-10 16:59] LABS: HCG,QUAL URINE NEGATIVE (NEGATIVE)
[2024-11-10] MEDS ORDERED: ARIP15TA27 PO (18:39)
[2024-11-10] MEDS: LIDOCAINE/PF 1% 2 ML VIAL IM ONE (18:56)
[2024-11-10] MEDS: AZITHROMYCIN 500 MG TABLET PO ONE (18:56)
[2024-11-10] MEDS: CefTRIAXone SODIUM 1 GM/VIAL IM ONE (18:57)
[2024-11-10 20:55] VITALS: BP 117/68; PULSE 77; RESP 18; O2SAT 100
== END 2024-11-10 21:59 | disposition home or self-care (01) ==
LOC: EMS 16:19
DX: N90.7 Vulvar cyst (principal); F32.A Depression, unspecified; F20.9 Schizophrenia, unspecified
CPT/HCPCS: 99283; 81003; 84703; 87491; 87591; 96372; J0456; J0696; J3490; 99284